=== PATIENT | female | born 1980 | race Caucasian/White ===

== ENCOUNTER 2023-01-19 13:06 | Emergency (ER) | payer MEDICAID, SELFPAY ==
--- NOTE | ~2023-01-19 | CT_ITS ---
EXAMINATION: CT ABDOMEN AND PELVIS WITHOUT CONTRAST CLINICAL INFORMATION: Right flank pain, hematuria COMPARISON: None available. TECHNIQUE: Multidetector volumetric imaging was performed from the superior aspect of the liver through the pubic symphysis. Sagittal and coronal reformatted images were obtained on the technologist's workstation. This CT examination was performed using dose optimization techniques as appropriate, variously including the following: *Automated exposure control *Adjustment of mA and/or kV according to patient size (this includes techniques or standardized protocols for targeted exams where dose is matched to indication/reason for exam; i.e. extremities or head) *Use of iterative reconstruction technique DLP: 437.16 mGy-cm FINDINGS: LUNG BASES: The visualized lung bases are unremarkable. LIVER, GALLBLADDER, AND BILIARY TREE: The liver is normal in size, shape, and attenuation. No focal hepatic lesion or biliary ductal dilatation is present. The gallbladder is unremarkable with no evidence of radiopaque gallstones, gallbladder wall thickening, or obvious pericholecystic inflammatory changes. PANCREAS: Unremarkable. SPLEEN: Unremarkable. ADRENAL GLANDS: Unremarkable. KIDNEYS AND URETERS: The kidneys are normal in size, shape, and attenuation. No hydronephrosis, hydroureter, or calculi seen. No perinephric stranding. BLADDER: Unremarkable. GASTROINTESTINAL TRACT: The small and large bowel are unremarkable. The appendix is unremarkable. ABDOMINAL WALL: No significant hernia is appreciated. LYMPH NODES: Normal. VASCULAR: Unremarkable. PELVIC VISCERA: An intrauterine contraceptive device is present. There are no adnexal masses. OSSEOUS STRUCTURES: Degenerative disc disease is evident at L5-S1 with retrolisthesis and a prominent broad calcified disc osteophyte ridge. Right greater than left foraminal narrowing is present. CT/CT abdomen pelvis wo IV con IMPRESSION: 1. No acute findings in the abdomen or pelvis. 2. Incidental degenerative disc disease at L5-S1 with a calcified disc osteophyte ridge and asymmetric right foraminal encroachment. Fleischner guidelines were followed.
[2023-01-19 13:21] VITALS: BP 140/91; PULSE 95; RESP 17; TEMP 36.8; O2SAT 100; BMI 29.8
--- NOTE | 2023-01-19 13:23 | ED_ITS ---
HPI - Abdominal Pain General Chief Complaint: General Medical <BENIGNO Irvin Last Filed: 01/19/23 13:24> Stated Complaint: quest kidney stone back pain blood in urine <BENIGNO Irvin Last Filed: 01/19/23 13:24> Time Seen by Provider: 01/19/23 16:06 <BENIGNO Irvin Last Filed: 01/19/23 13:24> Source: patient <BENIGNO Mendoza Last Filed: 01/19/23 16:39> Mode of arrival: ambulatory <BENIGNO Mendoza Last Filed: 01/19/23 16:39> Limitations: no limitations <BENIGNO Mendoza Last Filed: 01/19/23 16:39> History of Present Illness HPI narrative: 42 year old female with history of SVT presents to the ED with right s ided flank pain, hematuria, frequency and nausea X1 day. Pain is intermittent sharp in nature unable to tell me what makes it better or worse. Reports small amount of blood on toilet paper when she wipes. No vaginal bleeding or changes of pregnanct, Patient reports her flank pain does not radiate anywhere. Patient reports she has never had kidney stones or similar symptoms before but reports that she works with someone who told her it might be a stone. She denies vomiting or diarrhea, fever, chills, malaise, saddle paresthesia, diarrhea or incontinence. <BENIGNO Mendoza Last Filed: 01/19/23 16:39> Related Data Home Medications: Previous Rx's Medication Instructions Recorded cefuroxime axetil 250 mg tablet 250 mg PO BID 10 days #20 tabs 01/19/23 ketorolac 10 mg tablet 10 mg PO TID PRN pain 5 days #15 01/19/23 tabs phenazopyridine 100 mg tablet 200 mg PO TID 2 days #6 tabs 01/19/23 (Pyridium) <BENIGNO Irvin Last Filed: 01/19/23 13:24> Allergies/Adverse Reactions: Allergies Allergy/AdvReac Type Severity Reaction Status Date / Time Sulfa (Sulfonamide Allergy Intermediate Hives Verified 01/19/23 13:22 Antibiotics) <BENIGNO Irvin Filed: 01/19/23 13:24> Review of Systems Review of Systems Constitutional : No Weight loss, No Fever, No Chills, No Fatigue, No Malaise ENT/Mouth : No sore throat, No Rhinorrhea Eyes: No Eye Pain, No Swelling, No Redness Cardiovascular : No Chest Pain, No SOB, No Dyspnea on Exertion, No Orthopnea, No Edema, No Palpitations Respiratory : No Cough, No Sputum, No Wheezing Gastrointestinal : + Nausea, No Vomiting, No Diarrhea, No Constipation, No abdominal Pain, No Hematochezia, No Melena Genitourinary : No Dysuria, + Urinary Frequency, + Hematuria, Musculoskeletal : No joint pain, No Myalgias, No Joint Swelling Skin : No Skin Lesions, No rash Neuro : No Weakness, No Numbness, No Dizziness, No Headache Psych : No Anxiety/Panic, No Depression Heme/Lymph: No Bruising, No Bleeding,No Lymphadenopathy Endocrine : No Polyuria, No Polydipsia All other systems reviewed and are negative <BENIGNO Mendoza Last Filed: 01/19/23 16:39> Yes all other systems are reviewed and are negative <BENIGNO Mendoza Last Filed: 01/19/23 16:39> FOR[facility]LY [facility] Past Medical History Attestation statement: The following information was validated with the patient. <BENIGNO Mendoza - Last Filed: 01/19/23 16:39> Source: old records reviewed and nursing notes reviewed <BENIGNO Mendoza Last Filed: 01/19/23 16:39> Social History Social History: Social History Advance Directives: No Advance Directives Information Provided: No <BENIGNO Irvin Last Filed: 01/19/23 13:24> Physical Exam ED Vital Signs: Vital Signs - 24 hr 01/19/23 13:21 Temperature 98.3 F Pulse Rate 95 Respiratory Rate 17 Blood Pressure 140/91 H Pulse Oximetry 100 Oxygen Delivery Method Room Air BMI result Body Mass Index 29.8 <BENIGNO Irvin Last Filed: 01/19/23 13:24> Vital Signs - 24 hr 01/19/23 13:21 Temperature 98.3 F Pulse Rate 95 Respiratory Rate 17 Blood Pressure 140/91 H Pulse Oximetry 100 Oxygen Delivery Method Room Air BMI result Body Mass Index 29.8 VSS <BENIGNO Mendoza Last Filed: 01/19/23 16:39> Appearance: Alert.? Oriented X3.? No acute distress.? Head: Normocephalic, atraumatic, no step-offs or deformities Neck: Normal inspection.? Neck supple.? CVS: Normal heart rate and rhythm.? Pulses normal.? Respiratory: No respiratory distress.? Breath sounds normal.? Abdomen: Soft and nontender.? Skin: Skin warm and dry.? Normal skin color.? Normal skin turgor.? Extremities: No lower extremity edema.? No calf ttp. 5/5 strength to bilateral upper and lower extremities Back: No midline tenderness, no C-spine tenderness, full range of motion, +CVA tenderness on the right Neuro: Oriented X 3.? No motor deficit.? No sensory deficit. CN 2-12 intact <BENIGNO Mendoza Last Filed: 01/19/23 16:39> Course Course Course Narrative: RME - 42 yo female with history of SVT presents to the ER for evaluation of 9/10 right sided flank pain and blood in her urine that started yesterday. She denies history of kidney stones. No fevers or vomiting. +dysuria. Plan: UA, labs, CT scan abd/pelvis <BENIGNO Irvin - Last Filed: 01/19/23 13:24> Reevaluation(s) Reevaluation #1: Ct with no acute findings in the abdomen and pelvis. No signs of pyelonephritis or stones. UA with trace bacteria, will treat for a UTI vs cystitis. Slight leukocytosis. No acute electrolyte abnormalities requiring intervention at this time. Patient reports some pain to right flank, will treat with toradol IM and send patient home with PO toradol. Educated patient on diagnosis and treatment plan, answered all question, patient verbalizes understanding. At this time patient will be discharged home, advised to return with new or worsening symptoms. Educated on worrisome signs and symptoms and when to return. At this time I feel comfortable discharge home. <BENIGNO Mendoza Last Filed: 01/19/23 16:39> Time: 16:37 <BENIGNO Mendoza Last Filed: 01/19/23 16:39> Medical Decision Making Medical Decision Making [facility] Narrative: 42 year old female presetns with right sided flank pain, hematuria, frequency and nausea X1 day. PE: +CVA tenderness on the right Plan: Labs imaging, urine, will give toradol for pain Ddx: mostly likely bloody cystitis vs kidney stones vs UTI. Less likely pyel onephritis, hydronephrosis, obstructing uropathy, acute blood loss anemia, electrolyte abnormalities. Other differentials include malignancy. No signs of acute abdomen. No signs of cauda equina or epidural abscess <BENIGNO Mendoza Last Filed: 01/19/23 16:39> Differential Diagnosis Differential Diagnoses: The differential diagnosis associated with the presentation includes <BENIGNO Mendoza Last Filed: 01/19/23 16:39> mostly likely bloody cystitis vs kidney stones vs UTI. Less likely pyelonephritis, hydronephrosis, obstructing uropathy, acute blood loss anemia, electrolyte abnormalities. Other differentials include malignancy. No signs of acute abdomen. No signs of cauda equina or epidural abscess <BENIGNO Mendoza Last Filed: 01/19/23 16:39> Admission/Observation Consideration of admission/observation: Escalation of care including admission/observation considered <BENIGNO Mendoza Last Filed: 01/19/23 16:39> Not indicated <BENIGNO Mendoza Last Filed: 01/19/23 16:39> Lab Data [facility] Lab Attestation statement: I reviewed the patient's lab results. <BENIGNO Mendoza Last Filed: 01/19/23 16:39> Result Diagrams: 01/19/23 13:55 01/19/23 13:55 <BENIGNO Irvin Last Filed: 01/19/23 13:24> Labs: Lab Results 01/19/23 01/19/23 01/19/23 Range/Units 13:55 13:55 13:55 WBC 13.0 H (4.8-10.8) X10*3/uL RBC 4.26 (4.20-5.50) X10*6/uL Hgb 13.6 (12.0-16.0) g/dl Hct 40.4 (37.0-47.0) % MCV 94.8 (80.0-98.0) fL MCH 31.9 (27.0-33.0) pg MCHC 33.7 (31.0-35.0) g/dl RDW 12.8 (11.0-16.0) % Plt Count 399 (160-400) X10*3/uL MPV 8.8 L (9.4-12.3) fL Immature Gran % (Auto) 0.7 H (0.0-0.4) % Neut % (Auto) 57.2 (45-73) % Lymph % (Auto) 35.4 (20-40) % Morrow % (Auto) 5.6 (2-11) % Eos % (Auto) 0.3 (0-4) % Baso % (Auto) 0.8 (0-2) % Lymph # (Auto) 4.6 (1.2-4.9) X10*3/uL Morrow # (Auto) 0.7 (0.1-1.2) X10*3/uL Eos # (Auto) 0.0 (0.0-0.4) X10*3/uL Baso # (Auto) 0.1 (0.0-0.2) X10*3/uL Abs Immat Gran (auto) 0.09 H (0.00-0.03) X10*3/uL Absolute Neuts (auto) 7.5 (2.0-8.3) x10*3/uL Absolute Nucleated RBC 0.000 (0.0-0.012) X10*3/uL Nucleated RBC % (auto) 0.0 (0.0-0.2) /100WBC Sodium 140 (135-145) mmol/L Potassium 3.8 (3.3-5.1) mmol/L Chloride 108 (96-108) mmol/L Carbon Dioxide 23 (22-29) mmol/L Anion Gap 13 (12-20) BUN 8 L (9-16) mg/dL Creatinine 0.84 (0.5-1.4) mg/dL Estim Creat Clear Calc 79.6 Estimated GFR > 60 Random Glucose 120 H (60-115) mg/dL Calcium 9.3 (8.4-10.2) mg/dL Magnesium 1.9 (1.6-2.6) mg/dL Total Bilirubin 0.3 (0.0-1.0) mg/dL Direct Bilirubin 0.1 (0.0-0.5) mg/dL AST 13 (5-31) U/L ALT 13 (0-31) U/L Alkaline Phosphatase 57 (39-117) U/L Total Protein 7.1 (6.5-8.0) g/dL Albumin 4.2 (3.5-5.0) g/dL Beta HCG, Quant < 2 mIU/mL Urine Color Yellow Urine Appearance Clear Urine pH 6.5 (5.0-9.0) Ur Specific Gray 1.010 (1.005-1.025) Urine Protein Negative (Neg-Trace) mg/dL Urine Glucose (UA) Negative (Negative) mg/dL Urine Ketones Negative (Negative) mg/dL Urine Blood Trace H (Negative) Urine Nitrite Negative (Negative) Ur Leukocyte Esterase Trace H (Negative) Urine RBC 0-2 (0-2) /HPF Urine WBC 0-5 (0-5) /HPF Ur Squamous Epith Cells 3-5 (0-2) /HPF Urine Bacteria Trace (None Seen) Hyaline Casts 0-2 (0-2) /LPF <BENIGNO Irvin - Last Filed: 01/19/23 13:24> Lab Results 01/19/23 01/19/23 01/19/23 Range/Units 13:55 13:55 13:55 WBC 13.0 H (4.8-10.8) X10*3/uL RBC 4.26 (4.20-5.50) X10*6/uL Hgb 13.6 (12.0-16.0) g/dl Hct 40.4 (37.0-47.0) % MCV 94.8 (80.0-98.0) fL MCH 31.9 (27.0-33.0) pg MCHC 33.7 (31.0-35.0) g/dl RDW 12.8 (11.0-16.0) % Plt Count 399 (160-400) X10*3/uL MPV 8.8 L (9.4-12.3) fL Immature Gran % (Auto) 0.7 H (0.0-0.4) % Neut % (Auto) 57.2 (45-73) % Lymph % (Auto) 35.4 (20-40) % Morrow % (Auto) 5.6 (2-11) % Eos % (Auto) 0.3 (0-4) % Baso % (Auto) 0.8 (0-2) % Lymph # (Auto) 4.6 (1.2-4.9) X10*3/uL Morrow # (Auto) 0.7 (0.1-1.2) X10*3/uL Eos # (Auto) 0.0 (0.0-0.4) X10*3/uL Baso # (Auto) 0.1 (0.0-0.2) X10*3/uL Abs Immat Gran (auto) 0.09 H (0.00-0.03) X10*3/uL Absolute Neuts (auto) 7.5 (2.0-8.3) x10*3/uL Absolute Nucleated RBC 0.000 (0.0-0.012) X10*3/uL Nucleated RBC % (auto) 0.0 (0.0-0.2) /100WBC Sodium 140 (135-145) mmol/L Potassium 3.8 (3.3-5.1) mmol/L Chloride 108 (96-108) mmol/L Carbon Dioxide 23 (22-29) mmol/L Anion Gap 13 (12-20) BUN 8 L (9-16) mg/dL Creatinine 0.84 (0.5-1.4) mg/dL Estim Creat Clear Calc 79.6 Estimated GFR > 60 Random Glucose 120 H (60-115) mg/dL Calcium 9.3 (8.4-10.2) mg/dL Magnesium 1.9 (1.6-2.6) mg/dL Total Bilirubin 0.3 (0.0-1.0) mg/dL Direct Bilirubin 0.1 (0.0-0.5) mg/dL AST 13 (5-31) U/L ALT 13 (0-31) U/L Alkaline Phosphatase 57 (39-117) U/L Total Protein 7.1 (6.5-8.0) g/dL Albumin 4.2 (3.5-5.0) g/dL Beta HCG, Quant < 2 mIU/mL Urine Color Yellow Urine Appearance Clear Urine pH 6.5 (5.0-9.0) Ur Specific Gray 1.010 (1.005-1.025) Urine Protein Negative (Neg-Trace) mg/dL Urine Glucose (UA) Negative (Negative) mg/dL Urine Ketones Negative (Negative) mg/dL Urine Blood Trace H (Negative) Urine Nitrite Negative (Negative) Ur Leukocyte Esterase Trace H (Negative) Urine RBC 0-2 (0-2) /HPF Urine WBC 0-5 (0-5) /HPF Ur Squamous Epith Cells 3-5 (0-2) /HPF Urine Bacteria Trace (None Seen) Hyaline Casts 0-2 (0-2) /LPF <BENIGNO Mendoza - Last Filed: 01/19/23 16:39> Independent Interpretation I performed an independent interpretation of an: CT Scan <BENIGNO Mendoza - Last Filed: 01/19/23 16:39> Interpretation: CT/CT abdomen pelvis wo IV con IMPRESSION: ? 1. No acute findings in the abdomen or pelvis. ? 2. Incidental degenerative disc disease at L5-S1 with a calcified disc osteophyte ridge and asymmetric right foraminal encroachment.? ? Fleischner guidelines were followed. <BENIGNO Mendoza - Last Filed: 01/19/23 16:39> Radiology Impression Discussion of test interpretation with radiology: I have reviewed the radiologist's reading. <BENIGNO Mendoza - Last Filed: 01/19/23 16:39> External Record Review External record reviewed: Inpatient record, Outpatient record, Prior outpatient labs, Prior outp atient radiology, Primary care record and Outside ED record <BENIGNO Mendoza - Last Filed: 01/19/23 16:39> Prescription Management I considered prescription management with: Pain Medication and Antibiotic <BENIGNO Mendoza Last Filed: 01/19/23 16:39> Core Measures AMI core measures followed: Yes <BENIGNO Mendoza Last Filed: 01/19/23 16:39> Measure exclusions: not indicated <BENIGNO Mendoza - Last Filed: 01/19/23 16:39> Critical Care Time Critical Care Time Critical Care Time: No <BENIGNO Mendoza Last Filed: 01/19/23 16:39> Discharge Plan Discharge Clinical Impression: Cystitis <BENIGNO Irvin Last Filed: 01/19/23 13:24> Patient Disposition: Home, Self-Care <BENIGNO Irvin Last Filed: 01/19/23 13:24> Instructions: Urinary Tract Infection in Women (DC) <BENIGNO Irvin Last Filed: 01/19/23 13:24> Additional Instructions: Take your medications as prescribed. If you were prescribed antibiotics t cadence, it is important that you take your medication to their entirety, do not skip any doses, do not finish them early. Follow-up with your primary care provider this week. Return to the emergency department with new or worsening symptoms. Such as fevers, chills, chest pain, shortness of breath, nausea, vomiting, dizziness, headache, vision changes, lethargy In case of emergency call 911 CT/CT abdomen pelvis wo IV con IMPRESSION: ? 1. No acute findings in the abdomen or pelvis. ? 2. Incidental degenerative disc disease at L5-S1 with a calcified disc osteophyte ridge and asymmetric right foraminal encroachment.? ? Fleischner guidelines were followed. <BENIGNO Irvin Last Filed: 01/19/23 13:24> Prescriptions: New cefuroxime axetil 250 mg tablet 250 mg PO BID 10 Days Qty: 20 0RF ketorolac 10 mg tablet 10 mg PO TID PRN (Reason: pain) 5 Days Qty: 15 0RF phenazopyridine [Pyridium] 100 mg tablet 200 mg PO TID 2 Days Qty: 6 0RF <BENIGNO Irvin Last Filed: 01/19/23 13:24> Referrals: [facility] [Provider Group] - 1 week Emir Rodgers PA-C [Primary Care Provider] - 1 week <BENIGNO Irvin Last Filed: 01/19/23 13:24>
[2023-01-19 14:00] LABS: MANUAL DIFF FLAG NO
[2023-01-19 14:03] LABS: Appearance Urine Clear; Color Urine Yellow; Glucose Urine UA Negative (Negative); Leukocyte Esterase Urine Trace (Negative); Nitrite Urine Negative (Negative); PH 6.5 (5.0-9.0); UMIC TRIGGER UACC YES; Urine Blood Trace (Negative); Urine Ketones Negative (Negative); Urine Protein Negative (Neg-Trace)
[2023-01-19 14:04] LABS: Basophils Absolute Auto 0.1 X10*3/uL (0.0-0.2); Basophils Percent Auto 0.8 % (0-2); Eosinophils Percent Auto 0.3 % (0-4); Hematocrit 40.4 % (37.0-47.0); Hemoglobin 13.6 g/dl (12.0-16.0); Imm Gran Abs Auto 0.09 X10*3/uL (0.00-0.03); Imm Gran Pct Auto 0.7 % (0.0-0.4); Lymphocytes Absolute Auto 4.6 X10*3/uL (1.2-4.9); Lymphocytes Percent Auto 35.4 % (20-40); Mean Corpuscular HGB Conc 33.7 g/dl (31.0-35.0); Mean Corpuscular Hemoglobin 31.9 pg (27.0-33.0); Mean Corpuscular Volume 94.8 fL (80.0-98.0); Mean Platelet Volume 8.8 fL (9.4-12.3); Monocytes Absolute Auto 0.7 X10*3/uL (0.1-1.2); Monocytes Percent Auto 5.6 % (2-11); Neutrophils Absolute Auto 7.5 x10*3/uL (2.0-8.3); Neutrophils Percent Auto 57.2 % (45-73); Platelet Count 399 X10*3/uL (160-400); Red Blood Count 4.26 X10*6/uL (4.20-5.50); Red Cell Distribution Width 12.8 % (11.0-16.0)
[2023-01-19 14:05] LABS: Bacteria Urine Trace (None Seen); Hyaline Casts Urine 0-2 /LPF (0-2); RBC Urine 0-2 /HPF (0-2); WBC Urine 0-5 /HPF (0-5)
[2023-01-19 14:24] LABS: Alanine Aminotransferase 13 U/L (0-31); Albumin Level 4.2 g/dL (3.5-5.0); Alkaline Phosphatase 57 U/L (39-117); Anion Gap 13 (12-20); Aspartate Amino Transferase 13 U/L (5-31); Bilirubin Direct 0.1 mg/dL (0.0-0.5); Bilirubin Total 0.3 mg/dL (0.0-1.0); Blood Urea Nitrogen 8 mg/dL (9-16); Calcium 9.3 mg/dL (8.4-10.2); Carbon Dioxide 23 mmol/L (22-29); Chloride 108 mmol/L (96-108); Creatinine Clr Calc Pharmacy 79.6; Estimated Glomerular Filt Rate > 60; Glucose Random 120 mg/dL (60-115); HCG Quantitative < 2 mIU/mL; Magnesium 1.9 mg/dL (1.6-2.6); Potassium 3.8 mmol/L (3.3-5.1); Sodium 140 mmol/L (135-145); Total Protein 7.1 g/dL (6.5-8.0)
--- OUTSIDE RECORDS SUMMARY | 2023-01-19 15:58 | XMS_ITS | Continuity of Care Document ---
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 Attending Physician: Linh Renee NP Admitting Physician: Linh Renee NP Referring Physician: Linh Renee NP Allergies, Adverse Reactions, Alerts Substance Reaction Severity Status sulfADIAZINE hives Active Imitrex Active Medications Elavil Tablet 10 mg, By Mouth, Daily at bedtime, Maintenance, 10/09/11 14:08:19 Start Date: 10/09/11 Status: Ordered Flexeril 10 mg oral tablet See Instructions, 1 pill 1 hour before bedtime for 6 nights, then prn RATLIFF/insomnia, # 20 tablet, 0 Refills, Maintenance Start Date: 10/09/11 Status: Ordered ibuprofen 800 mg oral tablet 1 tablet = 800 mg, By Mouth, Every 8 hours, # 30 tablet, 0 Refills, Maintenance, Tablet Start Date: 05/09/12 Status: Ordered prednisone 10 mg oral tablet See Instructions, 3 a day for 2 days, then 2 a day for 2 days, then 1 a day for 2 days, the 1/2 twice a day for 1 day then stop, # 42 tablet, 0 Refills, Maintenance Start Date: 10/09/11 Status: Ordered Problem List Condition Effective Dates Status Health Status Inform ant Analgesic overuse headache(Confirmed) Active
--- OUTSIDE RECORDS SUMMARY | 2023-01-19 15:58 | XMS_ITS | Continuity of Care Document ---
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 Role Phone Emir Blanco Primary Care Physician [phone] Encounter [facility] [place] Date(s): 03/19/22 - 03/22/[address] [address]- Encounter Diagnosis Benzodiazepine overdose(Final) - 03/19/22 Discharge Disposition: Transfer to [facility] Attending Physician: Sulema George MD Admitting Physician: Sulema George MD Referring Physician: Not on Staff, Referring MD Allergies, Adverse Reactions, Alerts Substance Reaction Severity Status sulfADIAZINE hives Active Imitrex Active Medications amitriptyline 25 mg oral tablet 25 mg, 1, tablet, By Mouth, 3 times a day, # 270 tablet, Refills 0, Maintenance, 03/19/22 15:37:00 EDT, Partial fill upon patient request if the prescription is for a schedule II opioid drug. Start Date: 03/19/22 Status: Ordered carisoprodol 350 mg oral tablet 1 tablet = 350 mg, By Mouth, 3 times a day, 0 Refills, Maintenance, 03/19/22 15:37:00 EDT, Tablet, Partial fill upon patient request if the prescription is for a schedule II opioid drug. Start Date: 03/19/22 Status: Ordered Elavil Tablet 10 mg, By Mouth, Daily at bedtime, Maintenance, 10/09/11 14:08:19 Start Date: 10/09/11 Status: Ordered Flexeril 10 mg oral tablet See Instructions, 1 pill 1 hour before bedtime for 6 nights, then prn RATLIFF/insomnia, # 20 tablet, 0 Refills, Maintenance Start Date: 10/09/11 Status: Ordered hydrOXYzine hydrochloride 25 mg oral tablet 1 tablet = 25 mg, By Mouth, 4 times a day, PRN for anxiety, # 40 tablet, 0 Refills, Maintenance, 03/19/22 15:36:00 EDT, Tablet, Partial fill upon patient request if the prescription is for a scheduleII opioid drug. Start Date: 03/19/22 Status: Ordered ibuprofen 800 mg oral tablet 1 tablet = 800 mg, By Mouth, Every 8 hours, # 30 tablet, 0 Refills, Maintenance, Tablet Start Date: 05/09/12 Status: Ordered Metoprolol Succinate ER 50 mg oral tablet, extended release 1 tablet = 50 mg, By Mouth, Daily, # 30 tablet, 0 Refills, Maintenance, 03/19/22 15:36:00 EDT, ER Tablet, Partial fill upon patient request if the prescription is for a schedule II opioid drug. Start Date: 03/19/22 Status: Ordered omeprazole 20 mg oral enteric coated capsule 1 capsule = 20 mg, By Mouth, Daily, # 30 capsule, 0 Refills, Maintenance, 03/19/22 15:37:00 EDT, ECCapsule, Partial fill upon patient request if the prescription is for a schedule II opioid drug. Start Date: 03/19/22 Status: Ordered prednisone 10 mg oral tablet See Instructions, 3 a day for 2 days, then 2 a day for 2 days, then 1 a day for 2 days, the 1/2 twice a day for 1 day then stop, # 42 tablet, 0 Refills, Maintenance Start Date: 10/09/11 Status: Ordered sertraline 100 mg oral tablet 1 tablet = 100 mg, By Mouth, Daily, # 30 tablet, 0 Refills, Maintenance, 03/19/22 15:36:00 EDT, Tablet, Partial fill upon patient request if the prescription is for a schedule II opioid drug. Start Date: 03/19/22 Status: Ordered topiramate 50 mg oral tablet 1 tablet = 50 mg, By Mouth, 2 times a day, # 180 tablet, 0 Refills, Maintenance, 03/19/22 15:37:00 EDT, Tablet, Partial fill upon patient request if the prescription is for a schedule II opioid drug. Start Date: 03/19/22 Status: Ordered Problem List Condition Effective Dates Status Health Status Inform ant Analgesic overuse headache(Confirmed) Active Vital Signs Most recent to oldest [Reference Range]: 1 2 3 Oxygen Saturation [94-100 %] 100 % (03/22/22:23 AM) 98 % (03/21/22 10:03 PM) 97 % (03/21/22 12:39 PM) Pulse Rate [55-90 bpm] 79 bpm (03/22/22:23 AM) 72 bpm (03/21/22 10:03 PM) 73 bpm (03/21/22 12:39 PM) Blood Pressure [90-138/55-84 mm Hg] 130/79mm Hg (03/22/22:23 AM) 127/86mm Hg (03/21/22 10:03 PM) 111/59mm Hg (03/21/22 12:39 PM) Respiratory Rate [16-30 br/min] 20 br/min (03/22/22:23 AM) 18 br/min (03/21/22 10:03 PM) 16 br/min (03/21/22 12:39 PM) Temperature [96.8-100.4 DegF] 98.4 DegF (03/22/22:23 AM) 98.4 DegF (03/21/22 10:03 PM) 98.7 DegF (03/21/22 12:39 PM) Mode of Delivery (Oxygen) Room air (03/22/22 5:23 AM) Room air (03/21/22 10:03 PM) Room air (03/21/22 12:39 PM) Blood pressure sites Arm, right (03/22/22:23 AM) Arm, left (03/21/22 10:03 PM) Arm, left (03/21/22 12:39 PM) Temperature Route Oral (03/22/22:23 AM) Oral (03/21/22 10:03 PM) Oral (03/21/22 12:39 PM)
--- OUTSIDE RECORDS SUMMARY | 2023-01-19 15:58 | XMS_ITS | Continuity of Care Document ---
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
[2023-01-19] MEDS: Ketorolac Tromethamine 15 MG/ML VIAL 30 MG IM (16:38)
== END 2023-01-19 16:45 | disposition home or self-care (01) ==
PROVIDERS: Physician Assistant; Emergency Provider Emergency Medicine; PCP Registered Nurse
DX: N30.90 Cystitis, unspecified without hematuria (principal); R35.0 Frequency of micturition; M54.50 Low back pain, unspecified; R10.2 Pelvic and perineal pain; Z79.899 Other long term (current) drug therapy
CPT/HCPCS: 36415; 74176; 80048; 80076; 81001; 81003; 83735; 84702; 85025; 96372; 99282; 99283; 99284; J1885

== ENCOUNTER 2024-08-11 21:24 | Emergency (ER) | payer OTHER, SELFPAY ==
--- NOTE | ~2024-08-11 | CT_ITS ---
EXAMINATION: CT ABDOMEN AND PELVIS WITH CONTRAST CLINICAL INFORMATION: Right lower quadrant pain. COMPARISON: None available. TECHNIQUE: Multidetector volumetric images were obtained from the superior aspect of the liver through the pubic symphysis following administration 85 mL of Omnipaque 350 intravenous contrast. Sagittal and coronal reformatted images were obtained on the technologist's workstation. Oral contrast: No This CT examination was performed using dose optimization techniques as appropriate, variously including the following: *Automated exposure control *Adjustment of mA and/or kV according to patient size (this includes techniques or standardized protocols for targeted exams where dose is matched to indication/reason for exam; i.e. extremities or head) *Use of iterative reconstruction technique DLP: 586 mGy-cm FINDINGS: LUNG BASES: The visualized lung bases are unremarkable. LIVER, GALLBLADDER, AND BILIARY TREE: The liver is normal in size, shape, and attenuation. No focal hepatic lesion or biliary ductal dilatation is present. The gallbladder is unremarkable with no evidence of radiopaque gallstones, gallbladder wall thickening, or obvious pericholecystic inflammatory changes. PANCREAS: Unremarkable. SPLEEN: Unremarkable. ADRENAL GLANDS: Unremarkable. KIDNEYS AND URETERS: The kidneys are normal in size, shape, and attenuation. No hydronephrosis, hydroureter, or calculi seen. No perinephric stranding. There is a subcentimeter cyst mid pole right kidney. BLADDER: Unremarkable. GASTROINTESTINAL TRACT: There are diverticula of the descending and sigmoid colon without diverticulitis. The appendix is visualized and is within normal limits. ABDOMINAL WALL: No significant hernia is appreciated. LYMPH NODES: Normal. VASCULAR: Unremarkable. PELVIC VISCERA: There is an IUD in place. There is a prominent heterogeneous cervix with fluid within the endometrial canal. OSSEOUS STRUCTURES: There is moderate L5-S1 disc degenerative change with a prominent posterior osteophyte with mild to moderate spinal canal narrowing. CT/CT abdomen pelvis w IV con IMPRESSION: 1. No acute abnormality in the abdomen or pelvis. 2. Diverticulosis without diverticulitis. 3. Prominent heterogeneous cervix with fluid within the endometrial canal. Recommend correlation with physical examination. Follow-up suggested. 4. Moderate L5-S1 disc degenerative change with mild to moderate spinal canal narrowing. Fleischner guidelines were followed. Electronically signed by: Manolo Hightower MD 08/12/2024 05:22 AM EST
--- NOTE | ~2024-08-11 | US_ITS ---
EXAMINATION: US PELVIS CLINICAL INFORMATION: Pain. COMPARISON: None available. TECHNIQUE: Ultrasound of the pelvis is performed using both transabdominal and transvaginal transducers along with Doppler. Transvaginal imaging is performed due to inadequate visualization transabdominally. FINDINGS: Uterus: The uterus is anteverted and measures 10.4 x 4 x 5.7 cm. The cervix is prominent with multiple nabothian cysts and a small amount of fluid within the cervical canal. The double wall endometrial thickness is 4 mm. The uterus is smooth in contour and has normal myometrial echogenicity. No visible fibroid. Adnexa: Both ovaries are visualized. There is normal color flow to the adnexa. There is no ovarian torsion. There is no pelvic ascites or fluid collection. Right ovary measures 3 x 2.1 x 1.9 cm. Left ovary measures 2.6 x 1.9 x 1.8 cm. US/US pelvic ovarian doppler IMPRESSION: Prominent cervix with multiple nabothian cysts and a small amount of fluid within the cervical canal. Recommend correlation with physical examination. No evidence for ovarian torsion. Electronically signed by: Manolo Hightower MD 08/12/2024 03:47 AM EST
--- NOTE | ~2024-08-11 | US_ITS ---
EXAMINATION: US PELVIS CLINICAL INFORMATION: Pain. COMPARISON: None available. TECHNIQUE: Ultrasound of the pelvis is performed using both transabdominal and transvaginal transducers along with Doppler. Transvaginal imaging is performed due to inadequate visualization transabdominally. FINDINGS: Uterus: The uterus is anteverted and measures 10.4 x 4 x 5.7 cm. The cervix is prominent with multiple nabothian cysts and a small amount of fluid within the cervical canal. The double wall endometrial thickness is 4 mm. The uterus is smooth in contour and has normal myometrial echogenicity. No visible fibroid. Adnexa: Both ovaries are visualized. There is normal color flow to the adnexa. There is no ovarian torsion. There is no pelvic ascites or fluid collection. Right ovary measures 3 x 2.1 x 1.9 cm. Left ovary measures 2.6 x 1.9 x 1.8 cm. US/US pelvic and transvaginal IMPRESSION: Prominent cervix with multiple nabothian cysts and a small amount of fluid within the cervical canal. Recommend correlation with physical examination. No evidence for ovarian torsion. Electronically signed by: Manolo Hightower MD 08/12/2024 03:47 AM EST
[2024-08-11 21:26] VITALS: BP 175/93; PULSE 100; RESP 18; TEMP 36.8; O2SAT 94; BMI 32.8
[2024-08-11 21:50] LABS: Basophils Absolute Auto 0.1 X10*3/uL (0.0-0.2); Basophils Percent Auto 0.8 % (0-2); Eosinophils Absolute Auto 0.1 X10*3/uL (0.0-0.4); Eosinophils Percent Auto 0.5 % (0-4); Hematocrit 42.7 % (37.0-47.0); Hemoglobin 14.3 g/dl (12.0-16.0); Imm Gran Abs Auto 0.08 X10*3/uL (0.00-0.03); Imm Gran Pct Auto 0.5 % (0.0-0.4); Lymphocytes Absolute Auto 5.6 X10*3/uL (1.2-4.9); Lymphocytes Percent Auto 33.8 % (20-40); MANUAL DIFF FLAG SCAN; Mean Corpuscular HGB Conc 33.5 g/dl (31.0-35.0); Mean Corpuscular Volume 92.6 fL (80.0-98.0); Mean Platelet Volume 8.9 fL (9.4-12.3); Monocytes Absolute Auto 1.1 X10*3/uL (0.1-1.2); Monocytes Percent Auto 6.6 % (2-11); Neutrophils Absolute Auto 9.6 x10*3/uL (2.0-8.3); Neutrophils Percent Auto 57.8 % (45-73); Platelet Count 396 X10*3/uL (160-400); Red Blood Count 4.61 X10*6/uL (4.20-5.50); Red Cell Distribution Width 12.2 % (11.0-16.0); SCAN SMEAR FLAG 1; White Blood Count 16.6 X10*3/uL (4.8-10.8)
[2024-08-11 22:03] LABS: Alanine Aminotransferase 19 U/L (0-31); Albumin Level 4.3 g/dL (3.5-5.0); Alkaline Phosphatase 64 U/L (39-117); Anion Gap 10 (12-20); Aspartate Amino Transferase 16 U/L (5-31); Bilirubin Total 0.3 mg/dL (0.0-1.0); Blood Urea Nitrogen 10 mg/dL (9-16); Calcium 8.8 mg/dL (8.4-10.2); Carbon Dioxide 28 mmol/L (22-29); Chloride 105 mmol/L (96-108); Creatinine Clr Calc Pharmacy 88.3; Estimated Glomerular Filt Rate > 60; Glucose Random 138 mg/dL (60-115); Potassium 3.8 mmol/L (3.3-5.1); Sodium 139 mmol/L (135-145); Total Protein 7.7 g/dL (6.5-8.0)
[2024-08-11 22:14] LABS: SLIDE REVIEW VERIFIED
[2024-08-11 22:21] LABS: Lipase 31 U/L (8-78)
[2024-08-12 00:49] LABS: HCG Quantitative < 2 mIU/mL
[2024-08-12 01:03] VITALS: BP 124/69; PULSE 80; RESP 18; TEMP 36.9; O2SAT 97
--- NOTE | 2024-08-12 01:16 | ED_ITS ---
HPI - General Adult General Chief complaint: General Medical Stated complaint: ? ovarian cyst Time Seen by Provider: 08/12/24 00:13 Source: patient History of Present Illness ED Provider: Car[facility] narrative: 44-year-old female presenting for lower abdominal pain. Patient states that her symptoms began over the weekend with right-sided pelvic pain. Patient also endorses mild vaginal spotting after onset of pain. Patient has an IUD and states that she does not get a regular period. Patient is sexually active and last had intercourse this past Sunday. Patient also endorses nausea however denies vomiting, chest pain, shortness of breath, fevers, chills, vaginal discharge. Related Data Previous Rx's ?Medication ?Instructions ?Recorded cefuroxime axetil 250 mg tablet 250 mg PO BID 10 days #20 tabs 01/19/23 ketorolac 10 mg tablet 10 mg PO TID PRN pain 5 days #15 01/19/23 tabs phenazopyridine 100 mg tablet 200 mg (2 x 100 mg) PO TID 2 days 01/19/23 (Pyridium) #6 tabs Allergies Allergy/AdvReac Type Severity Reaction Status Date / Time Sulfa (Sulfonamide Allergy Intermediate Hives Verified 08/11/24 21:28 Antibiotics) Review of Systems 2 Review of Systems: patient endorses pelvic pain, nasuea and vaginal spotting Yes all other systems are reviewed and are negative PMFSH Social History Social History Advance Directives: No Advance Directives Information Provided: No Do you have a plan to hurt others: No Plan Physical Exam ED Vital Signs: Vital Signs - 24 hr 08/11/24 21:26 08/12/24 01:03 Temperature 98.3 F 98.4 F Pulse Rate 100 80 Respiratory Rate 18 18 Blood Pressure 175/93 H 124/69 Pulse Oximetry 94 97 Oxygen Delivery Method Room Air Room Air BMI result Body Mass Index 32.8 on exam patient is well-appearing in no acute distress. Lungs clear to auscultation bilaterally. Normal S1-S2 regular rate and rhythm. Abdomen is soft, nondistended with right sided pelvic TTP without rebound or guarding. No periumbical tenderness. Medical Decision Making Medical Decision Making [facility] Narrative: 44-year-old female presenting for right lower abdominal pain. I am concerned for the following; ectopic , ovarian cyst/ruptured cyst, ovarian torsion, nephrolithiasis - Less likely appendicitis, STD given HPI and reassuring belly exam - labs notable for electrolytes within normal limits, normal creatinine, negative HCG, leukocytosis of 16.6, stable H&H - pending TVUS; if patient has no findings a CT ab/pel should be ordered - Signed out to night provider Dr. Wilson Differential Diagnosis Differential Diagnoses: The differential diagnosis associated with the presentation includes ovarian cyst, ruptured cyst, nephrolithiasis Lab Data 08/11/24 21:38 08/11/24 21:38 Labs: Lab Results 08/11/24 Range/Units 21:38 WBC 16.6 H (4.8-10.8) X10*3/uL RBC 4.61 (4.20-5.50) X10*6/uL Hgb 14.3 (12.0-16.0) g/dl Hct 42.7 (37.0-47.0) % MCV 92.6 (80.0-98.0) fL MCH 31.0 (27.0-33.0) pg MCHC 33.5 (31.0-35.0) g/dl RDW 12.2 (11.0-16.0) % Plt Count 396 (160-400) X10*3/uL MPV 8.9 L (9.4-12.3) fL Immature Gran % (Auto) 0.5 H (0.0-0.4) % Neut % (Auto) 57.8 (45-73) % Lymph % (Auto) 33.8 (20-40) % [place] % (Auto) 6.6 (2-11) % Eos % (Auto) 0.5 (0-4) % Baso % (Auto) 0.8 (0-2) % Lymph # (Auto) 5.6 H (1.2-4.9) X10*3/uL [place] # (Auto) 1.1 (0.1-1.2) X10*3/uL Eos # (Auto) 0.1 (0.0-0.4) X10*3/uL Baso # (Auto) 0.1 (0.0-0.2) X10*3/uL Abs Immat Gran (auto) 0.08 H (0.00-0.03) X10*3/uL Absolute Neuts (auto) 9.6 H (2.0-8.3) x10*3/uL Absolute Nucleated RBC 0.000 (0.0-0.012) X10*3/uL Nucleated RBC % (auto) 0.0 (0.0-0.2) /100WBC Smear Tech's Comments VERIFIED Sodium 139 (135-145) mmol/L Potassium 3.8 (3.3-5.1) mmol/L Chloride 105 (96-108) mmol/L Carbon Dioxide 28 (22-29) mmol/L Anion Gap 10 L (12-20) BUN 10 (9-16) mg/dL Creatinine 0.78 (0.5-1.4) mg/dL Estim Creat Clear Calc 88.3 Estimated GFR > 60 Random Glucose 138 H (60-115) mg/dL Calcium 8.8 (8.4-10.2) mg/dL Total Bilirubin 0.3 (0.0-1.0) mg/dL AST 16 (5-31) U/L ALT 19 (0-31) U/L Alkaline Phosphatase 64 (39-117) U/L Total Protein 7.7 (6.5-8.0) g/dL Albumin 4.3 (3.5-5.0) g/dL Lipase 31 (8-78) U/L Beta HCG, Quant < 2 mIU/mL Discharge Plan Discharge Clinical Impression: Pelvic pain Patient Disposition: Still a Patient Additional Instructions: Please follow up with your primary care provider in the next 24-48 hours for reassessment. If you develop any new or worsening symptoms please return to the emergency department. Prescriptions: No Action cefuroxime axetil 250 mg tablet 250 mg PO BID 10 Days Qty: 20 0RF ketorolac 10 mg tablet 10 mg PO TID PRN (Reason: pain) 5 Days Qty: 15 0RF phenazopyridine [Pyridium] 100 mg tablet 200 mg PO TID 2 Days Qty: 6 0RF Print Language: [place] Citizen
[2024-08-12 02:41] LABS: Appearance Urine Clear; Color Urine Yellow; Glucose Urine UA Negative (Negative); Leukocyte Esterase Urine Negative (Negative); Nitrite Urine Negative (Negative); PH 6.5 (5.0-9.0); Specific Gravity - Urine >= 1.030 (1.005-1.025); Urine Blood Negative (Negative); Urine Ketones Negative (Negative); Urine Protein Trace mg/dL (Neg-Trace)
[2024-08-12 02:43] LABS: UPreg QC Valid YES; Urine Pregnancy NEGATIVE (NEGATIVE)
[2024-08-12 02:46] LABS: Bacteria Urine 1+ (None Seen); Hyaline Casts Urine 0-2 /LPF (0-2); RBC Urine 0-2 /HPF (0-2); WBC Urine 0-5 /HPF (0-5)
[2024-08-12] MEDS: Ketorolac Tromethamine 30 MG/ML VIAL IM (03:31)
[2024-08-12 03:58] VITALS: BP 143/94; PULSE 78; RESP 18; O2SAT 97
[2024-08-12] MEDS: iohexoL 350 MG/ML 100 ML INFUS..BTL 85 ML IV (04:45)
[2024-08-12] MEDS: ondansetron HCL 4 MG/2 ML VIAL IVPUSH (05:44)
[2024-08-12] MEDS: Morphine Sulfate 4 MG/ML CARTRIDGE IVPUSH (05:44)
[2024-08-12 06:50] VITALS: BP 142/88; PULSE 78; RESP 18; TEMP 37; O2SAT 99
[2024-08-12 07:07] VITALS: BP 142/88; PULSE 78; RESP 18; TEMP 37; O2SAT 99
[2024-08-12 12:18] LABS: CT PCR NOT DETECTED (Not Detect.); NG PCR NOT DETECTED (Not Detect.)
== END 2024-08-12 07:10 | disposition home or self-care (01) ==
PROVIDERS: Emergency Medicine; Emergency Provider Student in an Organized Health Care Education/Training Program
DX: R10.2 Pelvic and perineal pain (principal); N88.8 Other specified noninflammatory disorders of cervix uteri; N93.9 Abnormal uterine and vaginal bleeding, unspecified
CPT/HCPCS: 36415; 74177; 76830; 76856; 80053; 81001; 81025; 83690; 84702; 85025; 87491; 87591; 93975; 96372; 96374; 96375; 99284; J1885; J2270; J2405; Q9967